=== PATIENT | male | born 1970 | race Caucasian/White ===

== ENCOUNTER 2020-02-24 17:25 | Emergency (ER) | payer MEDICAID ==
--- NOTE | 2020-02-24 18:02 | ER Document Report ---
Doctor's Note Notes: 02/24/20 17:50 Patient does not want to be seen here in the emergency department. He was brought in by EMS at his family's request. He is awake alert and oriented to person place and time. He has no complaints and had a recent COVID-19 exposure. He is already aware to self quarantine and does not want to be seen. No h istory and physical was done by myself.
--- NOTE | 2020-02-24 18:45 | ER Document Report ---
ED Fever - General Chief Complaint: Fever Stated Complaint: FEVER Time Seen by Provider: 02/24/20 17:29 Notes: Patient has decided that he wants to be seen. Patient had a fever today and was recently around his cousin who is COVID positive. He did not want to come in initially did not want to be seen. Patient feels well. He had a fever this morning of 103. He was given Tylenol and sent to the emergency department for evaluation at the request of his family. No fever at this time. He has no headache, cough, congestion, neck pain, chest pain, trouble breathing, abdominal pain, dysuria, rash, or any other concerns. States that he feels well at this time. He does not want blood work done or urine taken, or chest x-ray. He would like a COVID-19 swab only please. - HPI Onset: This afternoon Quality of pain: No pain Severity: None Pain Level: Denies Associated symptoms: None - Related Data Home Medications: midodrine, quetiapine, sertraline, SMZ-TMP DS, tamsulosin, Vit D3, clindamycin, diltiazem er, doxycycline, melatonin, metoprolol succ ER, Past Medical History - Social History Smoking Status: Former Smoker Smoking Education Provided: No Frequency of alcohol use: None Drug Abuse: None Family History: Reviewed & Not Pertinent Review of Systems - Review of Systems Constitutional: Fever EENT: No symptoms reported Cardiovascular: No symptoms reported Respiratory: No symptoms reported Gastrointestinal: No symptoms reported Genitourinary: No symptoms reported Musculoskeletal: No symptoms reported Skin: No symptoms reported Neurological/Psychological: No symptoms reported Physical Exam - Vital signs Vitals: Temp 99.3 F 02/24/20 17:25 Interpretation: Normal - General General appearance: Appears well, Alert - HEENT Head: Normocephalic, Atraumatic Eyes: Normal Pupils: PERRL - Respiratory Respiratory status: No respiratory distress - Cardiovascular Rhythm: Regular Murmur: No - Abdominal Inspection: Normal, Obese Organomegaly: No organomegaly - Back Back: Normal, Nontender - Extremities General upper extremity: Normal inspection, Nontender, Normal ROM General lower extremity: Normal inspection, Nontender - Neurological Neuro grossly intact: Yes Cognition: Normal Orientation: AAOx4 Hurt Coma Scale Eye Opening: Spontaneous Hurt Coma Scale Verbal: Oriented Hurt Coma Scale Motor: Obeys Commands Hurt Coma Scale Total: 15 Speech: Normal Sensory: Normal Notes: Extremities at baseline - Psychological Associated symptoms: Normal affect, Normal mood - Skin Skin Temperature: Warm Skin Moisture: Dry Skin Color: Normal Course - Re-evaluation Re-evalutation: 02/24/20 18:43 Patient with COVID-19 contact and fevers today. No other concerns or symptoms. Initially did not want to be seen. Now would like a COVID-19 swab only please. Vitals are stable. No respiratory distress. He will be given instructions for self quarantining which the patient is bedbound so this should not be an issue. COVID Swab obtained. He will be given medical transport home. - Vital Signs Vital signs: Temp Pulse Resp BP Pulse Ox 99.1 F 95 20 122/70 96 02/24/20 19:52 02/24/20 19:52 02/24/20 19:52 02/24/20 19:52 02/24/20 19:52 Discharge - Discharge Clinical Impression: Suspected COVID-19 virus infection Fever Qualifiers: Fever type: unspecified Qualified Code(s): R50.9 - Fever, unspecified Condition: Stable Disposition: HOME, SELF-CARE Instructions: COVID-19 Guidance for Persons Under Investigation, Fever ([facility]), Viral Syndrome ([facility]) Additional Instructions: Please take Tylenol every 4 hours and ibuprofen every 6 hours as needed for fever. Return to the emergency department if you have any trouble breathing.
[2020-02-24 19:53] VITALS: BP 122/70
== END 2020-02-24 19:50 | disposition home or self-care (01) ==
LOC: ER 17:25
DX: U07.1 COVID-19 (principal); R50.9 Fever, unspecified; Z79.899 Other long term (current) drug therapy; Z87.891 Personal history of nicotine dependence
CPT/HCPCS: 99283; 87635; C9803